=== PATIENT | male | born 1975 | race Caucasian/White ===

== ENCOUNTER 2016-10-12 10:51 | Emergency (ER) | payer OTHER ==
[~2016-10-12] VITALS: Ht 172.7 cm; Wt 68.1 kg
[2016-10-12 10:53] VITALS: TEMP 36.5
--- NOTE | 2016-10-12 11:11 | EMERGENCY ROOM VISIT NOTE ---
History Report prepared by Teresa: Leonora Bagley Under the Supervision of: Dr. Yuri Rosenberg M.D. First contact with patient: 10:58 Chief Complaint: ILLNESS Stated Complaint: DIZZY, WEAK, DRY MOUTH, HEART RATE IS FAST History of Present Illness The patient is a 40 year old male who presents to the Emergency Room with complaints of persistent dizziness that began several days ago. The patient states that he is feeling dizzy all the time, and states that intermittently he experiences tingling, diaphoresis, near syncopal, weakness, and shakiness. He states that last evening he was driving home and he experienced all of his symptoms at once. The patient states that he is currently on Doxycycline and Hyclate for Lyme Disease, but states that he tested negative for Lyme Disease. He states that he has experienced heart palpations and shortness of breath, but denies any chest pain. The patient states that he has become so fatigued that he has been lying down while at work. He denies any family history of sudden cardiac , but states that he does have a family history heart disease, noting that his father has a history of a quadruple bypass. The patient states that he is a previous smoker 8-10 years ago. Source of History: patient Onset: several days ago Position: other (global) Quality: other (dizziness) Timing: other (persistent) Associated Symptoms: + SOB, + diaphoresis, + fatigue, + weakness, No chest pain Note: Associated Symptoms: tingling, shakiness, heart palpitations Review of Systems See HPI for pertinent positives & negatives. A total of 10 systems reviewed and were otherwise negative. Past Medical & Surgical Medical Problems: (1) Lyme disease Family History Heart disease Social History Smoking Status: Former Smoker Occupation Status: employed Current/Historical Medications Scheduled PRN Meclizine Hcl (Meclizine Hcl), 1 TAB PO TID PRN for Dizziness or Vertigo Miscellaneous Medications Doxycycline Hyclate (Doxycycline Hyclate) Allergies Uncoded Allergies: NO KNOWN ALLERGIES (Allergy, Unknown, ., 10/12/16) Physical Exam Vital Signs Date Time Temp Pulse Resp B/P Pulse Ox O2 Delivery O2 Flow Rate FiO2 10/12/16 13:00 91 123/99 100 Room Air 10/12/16 12:30 87 137/92 100 Room Air 10/12/16 11:34 81 150/96 78 146/90 77 135/92 10/12/16 11:30 77 146/90 99 Room Air 10/12/16 11:25 99 Room Air 10/12/16 11:25 78 10/12/16 11:25 99 Room Air 10/12/16 10:53 36.5 75 20 154/97 99 Room Air Physical Exam GENERAL: Patient is a healthy-appearing well-nourished HEAD: Normocephalic atraumatic EYES: Ocular movements intact pupils equal and react to light OROPHARYNX mucous membranes are moist no exudates present no erythema or edema present NECK: Supple no nuchal rigidity CHEST: Good equal expansion LUNGS: Clear and equal to auscultation CARDIAC: Normal S1 and S2 ABDOMEN: Soft nontender no guarding BACK: No CVA tenderness EXTREMITIES: No pain upon palpation normal muscle strength in all groups no clubbing cyanosis or edema NEURO: Patient is following commands is answering questions appropriately. Alert and oriented x3 Cranial Nerves 2-12 grossly intact Medical Decision & Procedures ER Provider Diagnostic Interpretation: X-ray results as stated below per interpretation by me and the radiologist: CHEST ONE VIEW PORTABLE CLINICAL HISTORY: Shortness of breath. Weakness. COMPARISON STUDY: No previous studies for comparison. FINDINGS: Lung volumes are normal. Lungs are clear. There is no pneumothorax or pleural effusion. Cardiac size is normal. Mediastinal contours are normal. There is no evidence of pulmonary edema. IMPRESSION: No acute cardiopulmonary findings. Electronically signed by: Jeffrey Lyons M.D. 10/12/2016 11:37 AM Dictated Date/Time: 10/12/2016 11:37 AM Laboratory Results 10/12/16 11:45 Red Blood Count 5.31, Mean Corpuscular Volume 90.4, Mean Corpuscular Hemoglobin 30.9, Mean Corpuscular Hemoglobin Concent 34.2, Mean Platelet Volume 10.5, Neutrophils (%) (Auto) 55.7, Lymphocytes (%) (Auto) 37.4, Monocytes (%) (Auto) 5.6, Eosinophils (%) (Auto) 0.6, Basophils (%) (Auto) 0.5, Neutrophils # (Auto) 4.54, Lymphocytes # (Auto) 3.05, Monocytes # (Auto) 0.46, Eosinophils # (Auto) 0.05, Basophils # (Auto) 0.04 10/12/16 11:45 Test 10/12/16 11:23 10/12/16 11:25 10/12/16 11:45 Bedside Glucose 99 mg/dl (70-99) Urine Color YELLOW Urine Appearance CLEAR (CLEAR) Urine pH 7.5 (4.5-7.5) Urine Specific [place] 1.012 (1.000-1.030) Urine Protein NEG (NEG) Urine Glucose (UA) NEG (NEG) Urine Ketones NEG (NEG) Urine Occult Blood NEG (NEG) Urine Nitrite NEG (NEG) Urine Bilirubin NEG (NEG) Urine Urobilinogen NEG (NEG) Urine Leukocyte Esterase NEG (NEG) White Blood Count 8.16 K/uL (4.8-10.8) Red Blood Count 5.31 M/uL (4.7-6.1) Hemoglobin 16.4 g/dL (14.0-18.0) Hematocrit 48.0 % (42-52) Mean Corpuscular Volume 90.4 fL (80-100) Mean Corpuscular Hemoglobin 30.9 pg (25-34) Mean Corpuscular Hemoglobin Concent 34.2 g/dl (32-36) Platelet Count 300 K/uL (130-400) Mean Platelet Volume 10.5 fL (7.4-10.4) Neutrophils (%) (Auto) 55.7 % Lymphocytes (%) (Auto) 37.4 % Monocytes (%) (Auto) 5.6 % Eosinophils (%) (Auto) 0.6 % Basophils (%) (Auto) 0.5 % Neutrophils # (Auto) 4.54 K/uL (1.4-6.5) Lymphocytes # (Auto) 3.05 K/uL (1.2-3.4) Monocytes # (Auto) 0.46 K/uL (0.11-0.59) Eosinophils # (Auto) 0.05 K/uL (0-0.5) Basophils # (Auto) 0.04 K/uL (0-0.2) RDW Standard Deviation 42.4 fL (36.4-46.3) RDW Coefficient of Variation 12.9 % (11.5-14.5) Immature Granulocyte % (Auto) 0.2 % Immature Granulocyte # (Auto) 0.02 K/uL (0.00-0.02) Anion Gap 7.0 mmol/L (3-11) Est Creatinine Clear Calc Drug Dose 94.6 ml/min Estimated GFR () 108.6 Estimated GFR (Non- 93.7 BUN/Creatinine Ratio 11.2 (10-20) Calcium Level 9.4 mg/dl (8.5-10.1) Total Bilirubin 0.4 mg/dl (0.2-1) Direct Bilirubin 0.1 mg/dl (0-0.2) Aspartate Amino Transf (AST/SGOT) 37 U/L (15-37) Alanine Aminotransferase (ALT/SGPT) 62 U/L (12-78) Alkaline Phosphatase 62 U/L (45-117) Total Creatine Kinase 112 U/L (39-308) Creatine Kinase MB < 0.5 ng/ml (0.5-3.6) Creatine Kinase MB Ratio (0-3.0) Troponin I < 0.015 ng/ml (0-0.045) Total Protein 8.3 gm/dl (6.4-8.2) Albumin 4.4 gm/dl (3.4-5.0) Thyroid Stimulating Hormone (TSH) 2.700 uIu/ml (0.300-4.500) Lyme Disease IgG Antibody NEG (NEG) Lyme Disease IgM Antibody NEG (NEG) Labs reviewed by ED physician. Medications Administered Medications (Trade) Dose Ordered Sig/Ava Route Start Time Stop Time Status Last Admin Dose Admin Sodium Chloride (Nss 1000ml) 1,000 ml @ 999 mls/hr Q1H1M STAT IV 10/12/16 11:14 10/12/16 12:14 DC 10/12/16 11:50 999 MLS/HR Meclizine HCl (Antivert Tab) 25 mg NOW STAT PO 10/12/16 13:14 10/12/16 13:15 DC 10/12/16 13:26 25 MG ECG Indication: palpitations, SOB/dyspnea Rate (beats per minute): 67 Rhythm: normal sinus Findings: no acute ischemic change, no ectopy ED Course 1059: Past medical records reviewed. The patient was evaluated in room A3. A complete history and physical examination was performed. 1114: Ordered Sodium Chloride 1000 ml @ 999 mls/hr IV. 1310: I reevaluated the patient and he is doing well. I discussed the exam findings with him and I discussed the treatment plan. He verbalized complete understanding and agreement. He is ready to go home. 1314: Ordered Meclizine HCl 25 mg PO. Medical Decision Differential diagnosis: Etiologies such as cardiac ischemia, aortic dissection, pulmonary embolism, pneumonia, pneumothorax, musculoskeletal, infections, pericarditis, myocarditis , esophageal rupture, gastrointestinal, as well as others were entertained. This is a 40-year-old male who presents emergency department complaining of episodes of dizziness along with numbness and tingling bilaterally to his hands and what feels like shortness of breath. During these episodes the patient feels he cannot get enough air. She has a normal EKG along with a normal CK-MB and troponin. He has a normal CBC normal renal profile normal liver profile. I believe based on these findings at the patient is safe enough to be discharged home for follow-up with cardiology. After discussing the case further with the patient we're going to try meclizine for the patient's dizziness to see if this helps. Impression Primary Impression: Dizziness Scribe Attestation The scribe's documentation has been prepared under my direction and personally reviewed by me in its entirety. I confirm that the note above accurately reflects all work, treatment, procedures, and medical decision making performed by me. Departure Information Dispostion Home / Self-Care Prescriptions Meclizine Hcl (MECLIZINE HCL) 25 Mg Tab 1 TAB PO TID Y for Dizziness or Vertigo for 10 Days, #30 TAB Prov: Yuri Rosenberg MD 10/12/16 Referrals No Doctor, Assigned (PCP) Obi Rayo D.O. Newhouser, Laura M., D.OCyn Forms HOME CARE DOCUMENTATION FORM, IMPORTANT VISIT INFORMATION, WORK / SCHOOL INSTRUCTIONS Patient Instructions ED Dizziness [facility], [facility] Additional Instructions Follow up with Dr Rayo this week You have been examined and treated today on an emergency basis only. This is not a substitute for, or an effort to provide, complete comprehensive medical care. It is impossible to recognize and treat all injuries or illnesses in a single emergency department visit. It is therefore important that you follow up closely with Dr Randall. Call as soon as possible for an appointment. Thank you for your time and consideration. I look forward to speaking with you again soon. Please don't hesitate to call us if you have any questions.
[2016-10-12] MEDS ORDERED: SODIUM CHLORIDE 0.9% 1000ML 1,000 ML IV STA (11:14)
[2016-10-12 11:25] VITALS: O2SAT 99
[2016-10-12 11:27] VITALS: Ht 172.7 cm; Wt 68.1 kg
[2016-10-12] MEDS ORDERED: DXY100 (11:34)
--- NOTE | 2016-10-12 11:39 | DIAGNOSTIC IMAGING REPORT ---
CHEST ONE VIEW PORTABLE CLINICAL HISTORY: Shortness of breath. Weakness. COMPARISON STUDY: No previous studies for comparison. FINDINGS: Lung volumes are normal. Lungs are clear. There is no pneumothorax or pleural effusion. Cardiac size is normal. Mediastinal contours are normal. There is no evidence of pulmonary edema. IMPRESSION: No acute cardiopulmonary findings. Electronically signed by: Jeffrey Lyons M.D. 10/12/2016 11:37 AM Dictated Date/Time: 10/12/2016 11:37 AM
[2016-10-12 11:43] LABS: URINE APPEARANCE CLEAR (CLEAR); URINE BILIRUBIN NEG (NEG); URINE COLOR YELLOW; URINE NITRITE NEG (NEG); URINE PH 7.5 (4.5-7.5); URINE SPECIFIC GRAVITY 1.012 (1.000-1.030); UROBILINOGEN NEG (NEG)
[2016-10-12 11:56] LABS: MANUAL MICROSCOPIC REQUIRED? NO; REVIEW REQ? NO
[2016-10-12 12:01] LABS: BASO % 0.5 %; BASO ABS # 0.04 K/uL (0-0.2); COMPLETE YES; EOS % 0.6 %; IG% 0.2 %; LYMPH % 37.4 %; LYMPH ABS # 3.05 K/uL (1.2-3.4); MEAN CELL VOLUME 90.4 fL (80-100); MEAN CORPUSCULAR HEMOGLOBIN 30.9 pg (25-34); MEAN CORPUSCULAR HGB CONC 34.2 g/dl (32-36); MEAN PLATELET VOLUME 10.5 fL (7.4-10.4); MONO % 5.6 %; NEUT % 55.7 %; PLATELET COUNT 300 K/uL (130-400); RED BLOOD COUNT 5.31 M/uL (4.7-6.1); WHITE BLOOD COUNT 8.16 K/uL (4.8-10.8)
[2016-10-12 12:21] LABS: ALT/SGPT 62 U/L (12-78); AST/SGOT 37 U/L (15-37); BLOOD UREA NITROGEN 11 mg/dl (7-18); BUN/CREATININE RATIO 11.2 (10-20); CALCIUM 9.4 mg/dl (8.5-10.1); CARBON DIOXIDE 28 mmol/L (21-32); CHLORIDE 107 mmol/L (98-107); GLUCOSE 106 mg/dl (70-99); POTASSIUM 3.5 mmol/L (3.5-5.1); SODIUM 142 mmol/L (136-145)
[2016-10-12 12:32] LABS: ALKALINE PHOSPHATASE 62 U/L (45-117)
[2016-10-12 12:51] LABS: LYME DISEASE AB IGG NEG (NEG); LYME DISEASE AB IGM NEG (NEG)
[2016-10-12] MEDS ORDERED: MECLIZINE HCL 25 MG TAB PO STA (13:14)
[2016-10-12 13:15] VITALS: BP 123/99; PULSE 91; O2SAT 100
[2016-10-12] MEDS ORDERED: MECL1TAB42 PO (13:17)
== END 2016-10-12 13:15 | disposition home or self-care (01) ==
LOC: C.EDA 11:25
DX: R42 Dizziness and giddiness (principal); R20.0 Anesthesia of skin; R06.02 Shortness of breath; Z87.891 Personal history of nicotine dependence; Z82.49 Family history of ischemic heart disease and other diseases of the circulatory system